=== PATIENT | male | born 2000 | race Caucasian/White ===

== ENCOUNTER 2025-03-22 13:49 | Emergency (ER) | payer OTHER, SELFPAY ==
[2025-03-22 13:59] VITALS: BP 134/78; PULSE 90; RESP 18; TEMP 37.1; O2SAT 98; BMI 22.0
--- NOTE | 2025-03-22 14:11 | ED.GENADULT ---
HPI - General Adult General Date Seen: 03/22/25 Chief complaint: Arrhythmia/Palpitations Stated complaint: light headed, dizzy, tightness in chest Time Seen by Provider: 03/22/25 14:10 History of Present Illness HPI narrative: 24 yo M who has a history of anxiety and ADHD (previously was medicated with Lexapro and methylphenidate but has been off meds for the past several months because he moved from his previous home in [place], [place], to live here in [place]. He has not yet established primary care here in [place]). He presents to the ER today with palpitations and chest discomfort. 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 His typical shift is 6:00 a.m. to 2. He has to get up very early to come to work and does drink a lot of energy drinks and caffeine in the mornings. He was at work today, unloading a semi and about 1:00 p.m. he started having palpitations where his heart was doing occasional skipping beating. He was not sure what to make of this. He has had this occasionally in the past but never quite is frequent or prolonged. He did not get dizzy or lightheaded but subsequently did develop a little bit of a squeezing pain in his upper chest and at 1 point felt like someone ?punched him? in the central chest and the punch went through to his back. For a moment he had a twinge of pain in his right shoulder. Now that he is here in the ER the palpitations have gone away. He still feels like there might be a potato chip stuck in his throat (but he is confident that definitely has no food or other chip stuck. He was not eating when this started). No other recent illness. No fever. No cough. No abdominal pain. No other back pain. No radiation to his left arm or down his right arm. Related Data Home Medications ?Medication ?Instructions ?Recorded ?Confirmed No Known Home Medications 03/22/25 03/22/25 Allergies Allergy/AdvReac Type Severity Reaction Status Date / Time No Known Drug Allergies Allergy Verified 03/22/25 13:59 PFSH PFS Social History Smoking Status: Never smoker How often do you have a drink containing alcohol: 2-4 times a month AUDIT-C Alcohol total score: 2 Non-prescribed substance use: denies use service: No Exam Narrative: Exam Narrative: Constitutional: Appears well-developed and well-nourished. Alert. Conversant. Non toxic. HENT: Head: Atraumatic. Nose: Nose normal. Mouth/Throat: Oral mucosa is clear and moist. no trismus. Pharynx normal. Tonsils symmetric. No tonsillar enlargement, erythema, or exudate. Eyes: Conjunctivae normal. EOM normal. Pupils equal, round, and reactive to light. No scleral icterus. Neck: Normal range of motion. Neck supple. No tracheal deviation present. No JVD Cardiovascular: Normal rate, regular rhythm. No gallop. No friction rub. No murmur heard. Symmetric radial and PT artery pulses I put the patient on the monitor and he has a sinus rhythm with no ectopy during my exam. Pulmonary/Chest: Effort normal. No stridor. No respiratory distress. No wheezes. No rales. No rhonchi . No tenderness. Abdominal: Soft. Bowel sounds normal. No distension. No mass. No tenderness. No rebound. No guarding. Musculoskeletal: RUE: Normal range of motion. No tenderness. No deformity LUE: Normal range of motion. No tenderness. No deformity RLE: Normal range of motion. No edema. No tenderness. No deformity LLE: Normal range of motion. No edema. No tenderness. No deformity Lymph: No cervical adenopathy. Neurological: Alert and oriented to person, place, and time. Normal strength. CN II-VII intact. No sensory deficit. GCS eye subscore is 4. GCS verbal subscore is 5. GCS motor subscore is 6. Normal coordination Skin: Skin is warm and dry. No rash noted. No pallor. Normal capillary refill. Psychiatric: Normal mood. Normal affect. Const: Vital Signs, click to edit/add: Vital Signs - 24 hr 03/22/25 13:59 03/22/25 17:09 Temperature 98.7 F Pulse Rate [Pulse Oximeter] 90 80 Respiratory Rate 18 18 Blood Pressure [Ri ght Upper Arm] 134/78 124/80 Pulse Oximetry 98 98 Oxygen Delivery Me thod Room Air Room Air Course Vital Signs Vital signs: Initial Vital Signs Temperature 98.7 F 03/22/25 13:59 Temperature Source Temporal Artery Scan 03/22/25 13:59 Pulse Rate 90 03/22/25 13:59 Respiratory Rate 18 03/22/25 13:59 Blood Pressure 134/78 03/22/25 13:59 Blood Pressure Mean 96 03/22/25 13:59 Pulse Oximetry 98 03/22/25 13:59 Oxygen Delivery Method Room Air 03/22/25 13:59 Vital Signs Temperature 98.7 F 03/22/25 13:59 Pulse Rate 90 03/22/25 13:59 Respiratory Rate 18 03/22/25 13:59 Blood Pressure 134/78 03/22/25 13:59 Pulse Oximetry 98 03/22/25 13:59 Oxygen Delivery Method Room Air 03/22/25 13:59 Temperature 98.7 F 03/22/25 13:59 Pulse Rate 80 03/22/25 17:09 Respiratory Rate 18 03/22/25 17:09 Blood Pressure 124/80 03/22/25 17:09 Pulse Oximetry 98 03/22/25 17:09 Oxygen Delivery Method Room Air 03/22/25 17:09 Medications Administered Medications: Discontinued Medications Generic Name Dose Route Start Last Admin Trade Name Dawna PRN Reason Stop Dose Admin Aspirin 324 mg 03/22/25 15:32 03/22/25 15:39 Aspirin 81 Mg Tab.Chew PO 03/22/25 15:33 324 mg ONCE ONE Administration Medical Decision Making MDM Narrative Medical decision making narrative: This patient presents for evaluation of palpitations that began about 1:00 p.m. this afternoon. After that he started having a little bit of a discomfort in his chest as well that he thinks might have been anxiety. In terms of the palpitations, Initial ECG shows normal sinus rhythm and no dysrhythmogenic abnormality such as WPW, prolonged QT, Brugada syndrome, and no ischemia. campus monitor while the patient here in the ER showed no dysrhythmia or ectopy. Unfortunately, the palpitations have resolved. A broad differential diagnosis was considered including SVT, Atrial fibrillation, ventricular arrhythmia, thyroid disease, acute electrolyte abnormality, drugs/medications, caffeine intake or other stimulants, medication side effect, anemia, among others. The workup and exam here in ED shows not specific cause of the patient's palpitations, and no risks factors to warrant admission. Clinical judgement suggests that supportive outpatient management is indicated. Will recommend follow up with primary care . We did place a 14 day Zio patch for this patient. He will follow-up with the primary care clinic to get the results. Precautions to return to the ER reviewed. In terms of his chest comfort, rub differentials considered. EKG shows benign early repolarization but no definite ischemia and no evidence for pericarditis. Initial point of care troponin is abnormal at 0.12 but I think this is lab error. We had laboratory run a lab based troponin I test from the same lab draw and that number is undetectable. At this point I do not think the patient is having acute coronary syndrome, myocarditis, pericarditis. We consider possible PE. Screening D-dimer is normal. With symmetric pulses, no ripping or tearing pain through to the back, normal D-dimer, I do not think the patient needs a chest CT scan to look for acute aortic syndrome. Lab Data Labs: Lab Results 03/22/25 03/22/25 Range/Units 14:31 14:44 WBC 5.31 (4.50-11.00) K/uL RBC 4.95 (4.30-5.90) m/uL Hgb 14.5 (13.5-17.5) gm/dL Hct 42.7 (37.0-53.0) % MCV 86 (80-100) fL MCH 29 (26-34) pg MCHC 34 (32-36) gm/dL RDW Coeff of Abiodun 11.5 (11.5-15.5) % Plt Count 172 (140-440) K/uL Neut % (Auto) 63.4 (42.0-72.0) % Lymph % (Auto) 24.7 (20-44) % Jessamine % (Auto) 9.6 (0.0-11.0) % Eos % (Auto) 1.5 (0.0-7.0) % Baso % (Auto) 0.6 (0.0-3.0) % Neut # (Auto) 3.37 (1.7-7.0) K/uL Lymph # (Auto) 1.31 (0.90-2.90) K/uL Jessamine # (Auto) 0.50 (0.00-0.90) K/UL Eos # (Auto) 0.08 (0.00-0.50) K/uL Baso # (Auto) 0.03 (0.00-0.30) K/uL Abs Immat Gran (auto) 0.01 (0.00-0.30) K/uL Imm/Tot Granulo (auto) 0.2 % D-Dimer Quant (PE/DVT) < 0.27 (0.00-0.50) ug/ml Sodium 139 (135-149) mmol/L Potassium 3.7 (3.6-5.1) mmol/L Chloride 99 (96-114) mmol/L Carbon Dioxide 29 (20-32) mmol/L Anion Gap 11 (7-15) mEq/L BUN 15 (5-24) mg/dL Creatinine 0.8 (0.5-1.5) mg/dL Estimated Creat Clear 146.82 Estimated GFR 128 ml/min Glucose 94 (60-115) mg/dL Calcium 8.9 (8.4-10.6) mg/dL Magnesium 2.0 (1.5-2.6) mg/dL Troponin I < 0.01 (0.01-0.04) ng/mL TSH 1.430 (0.270-4.200) uIU/mL POC Troponin I 0.12 H (0.01-0.04) ng/ml ECG Data Attestation: I personally reviewed and interpreted this ECG as follows: Interpretation: Normal sinus rhythm Rate 77 WA interval 128. No delta waves QRS axis normal. Upsloping ST segment elevation lead V2 consistent with benign early repolarization No reciprocal ST depressions. QT 330, QTC 373 Discharge Plan Discharge Clinical Impression: Palpitations, Chest pain Patient Disposition: Home, Self-Care Condition: Stable Instructions: Chest Pain (DC), Heart Palpitations (DC) Additional Instructions: As we discussed, so for your workup in the ER this afternoon looks reassuring. We do not see any signs of heart attack, or other serious cause of your symptoms. However your palpitations had resolved before we can get you on the heart monitor here. It is very important for you to follow-up with primary care for these palpitations and arrange an outpatient heart monitor. To arrange a primare care follow up with the [facility] you can call [phone] To arrange a primary care follow up with the [facility] in [place] you can call [phone] Please wear the Zio patch at home and then send back in the an envelope. It is very important for you to follow-up with primary care to follow-up on the results of the Zio patch test. I will not be able to see the Zio patch results here in the ER. If you have any worsening symptoms, please come back to the ER right away. Prescriptions: No Action No Known Home Medications Follow Up/Referrals: Provider,Not a Local [Primary Care Provider, Family Practice] Stand Alone Forms: [employer] Info Instructions
[2025-03-22 15:00] LABS: Troponin, Point-of-Care* 0.12 ng/ml (0.01-0.04)
[2025-03-22 15:22] LABS: Hematocrit* 42.7 % (37.0-53.0); Hemoglobin* 14.5 gm/dL (13.5-17.5); Immature Granulocytes Abs Auto 0.01 K/uL (0.00-0.30); Immature Granulocytes Pct Auto 0.2 %; Lymphocytes Absolute Auto 1.31 K/uL (0.90-2.90); Mean Corpuscular HGB Conc 34 gm/dL (32-36); Mean Corpuscular Hemoglobin 29 pg (26-34); Mean Corpuscular Volume 86 fL (80-100); RDW Coefficient of Variation % 11.5 % (11.5-15.5); Red Blood Count* 4.95 m/uL (4.30-5.90); White Blood Count* 5.31 K/uL (4.50-11.00)
[2025-03-22 15:25] LABS: Chloride* 99 mmol/L (96-114); Sodium* 139 mmol/L (135-149)
[2025-03-22 15:26] LABS: Potassium* 3.7 mmol/L (3.6-5.1)
[2025-03-22 15:29] LABS: Anion Gap 11 mEq/L (7-15); Blood Urea Nitrogen* 15 mg/dL (5-24); Calcium* 8.9 mg/dL (8.4-10.6); Carbon Dioxide* 29 mmol/L (20-32); Creatinine* 0.8 mg/dL (0.5-1.5); Est. Creatinine Clearance* 146.82; Estimated Glomerular Filt Rate 128 ml/min; Glucose* 94 mg/dL (60-115)
[2025-03-22] MEDS: ASPIRIN 81 MG TAB.CHEW 324 MG PO (15:39)
[2025-03-22 15:41] LABS: Slide Review Reflex No
[2025-03-22 16:11] LABS: D Dimer Quantitative* < 0.27 ug/ml (0.00-0.50)
[2025-03-22 16:33] LABS: TSH With Reflex to FT4* 1.430 uIU/mL (0.270-4.200)
[2025-03-22 17:09] VITALS: BP 124/80; PULSE 80; RESP 18; O2SAT 98
== END 2025-03-22 18:10 | disposition home or self-care (01) ==
PROVIDERS: Emergency Provider Emergency Medicine
DX: R00.2 Palpitations (principal); R07.9 Chest pain, unspecified
CPT/HCPCS: 36415; 80048; 83735; 84443; 84484; 85025; 85379; 93005; 99283; 99284; A9270